=== PATIENT | male | born 1975 ===

== ENCOUNTER 2025-06-23 06:33 | Day surgery (SDC) | payer BC, SELFPAY | END 2025-06-23 10:29 | disposition home or self-care (01) | LOC: GI 06:33 | PROVIDERS: ATTENDING PHYSICIAN Specialist | DX: Z12.11 Encounter for screening for malignant neoplasm of colon (principal); Z83.719 Family history of colon polyps, unspecified; K57.30 Diverticulosis of large intestine without perforation or abscess without bleeding; Z86.0100 Personal history of colon polyps, unspecified | CPT/HCPCS: G0105 ==